=== PATIENT | male | born 1970 | race Caucasian/White ===

== ENCOUNTER → 2020-04-19 10:01 | Outpatient (CLI) | payer OTHER, SELFPAY ==
[2020-04-19 12:05] LABS: Absolute Lymphocyte Count 0.78 X10^3/uL (0.83-4.51); Basophil# 0.02 X10^3/uL; Basophil% 0.6 % (0-1); Eosinophil# 0.04 X10^3/uL; Eosinophils% 1.3 % (0-5); Hematocrit 39.4 % (40-54); Lymphocyte # 0.78 X10^3/ul (4.0); Mean Corpuscular Hgb 29.2 pg (27.0-32.0); Mean Corpuscular Volume 88.5 fL (80-94); Mean Platelet Vol. 10.7 fl (6.2-12.0); Monocyte# 0.27 X10^3/uL; Monocyte% 8.7 % (0-10); NRBC Flagged by Analyzer 0 % (0-5); Neutrophil % 64.1 % (47-70); Platelet Count 159 K/mm3 (150-450); RBC Distribution Width CV 12.6 % (11.6-14.6); RBC Distribution Width SD 41.1 fl (35.1-43.9); Red Blood Count 4.45 M/mm3 (4.6-6.2); White Blood Count 3.1 K/mm3 (4.4-11.0)
[2020-04-19 12:27] LABS: ALB/GLOB Ratio 1.3 RATIO (0.9-2.4); AST(SGOT) 25 U/L (15-37); Alanine Aminotransfer ALT/SGPT 49 U/L (16-61); Albumin, Serum 4.3 g/dL (3.2-5.0); Alkaline Phosphatase 78 U/L (45-117); Anion Gap 6 (5-15); BUN 26 mg/dL (7-18); BUN/Creat Ratio 21.5 RATIO (10-20); Calcium,Total 9.1 mg/dL (8.5-10.1); Chloride 104 mmol/L (98-107); Cholesterol 233 mg/dL (200); Creatinine, Serum 1.21 mg/dL (0.70-1.30); EST Glomerular Filtration Rate 68 mL/min (>60); Est Glom Filt Rate - Afr Amer 82 mL/min (>60); Globulin 3.2 g/dL (2.2-4.2); Glucose 202 mg/dL (74-106); High Density Lipoprotein 40 mg/dL; Potassium 3.9 mmol/L (3.5-5.1); Protein, Total 7.5 g/dL (6.4-8.2); Sodium Level 138 mmol/L (136-145); Triglycerides 100 mg/dL; Very Low Density Lipoprotein 20 mg/dL (5-40)
[2020-04-19 12:31] LABS: Hemoglobin A1c 8.3 % (3.8-5.6)
[2020-04-19 12:40] LABS: Microalbumin,Random Urine 80.4 mg/L (NO RANGE EST.); Microalbumin:Creatinine Ratio 170.7 mg/g CRE (<30 mg/g CRE)
== END ==
PROVIDERS: PCP Family Medicine; Visit Provider Family Medicine
DX: E11.9 Type 2 diabetes mellitus without complications (principal); I10 Essential (primary) hypertension
CPT/HCPCS: 36415; 80053; 80061; 82043; 82570; 83036; 85025

== ENCOUNTER → 2020-09-02 09:50 | Outpatient (CLI) | payer OTHER, SELFPAY ==
--- NOTE | 2020-09-02 09:57 | US_ITS ---
STUDY: RENAL ULTRASOUND - COMPLETE REASON FOR EXAM: Male, 50 years old. CHRONIC KIDNEY DISEASE STAGE 2 TECHNIQUE: Ultrasound evaluation of the kidneys was performed with real-time and static armenta-scale imaging. COMPARISON: None. FINDINGS: RIGHT KIDNEY: Normal location of the right kidney, which is normal in size. The right kidney measures 12.2 cm x 5.9 cm x 4.8 cm. There is a normal cortex of the right kidney. The renal cortex measures 2.3 cm. There is no right renal mass or cyst. 3 mm nonobstructive intrarenal calculus. There is no right hydronephrosis. DISTAL RIGHT URETER: There is non-visualization of the distal right ureter. There is no demonstrated right ureterovesical junction calculus. There is a visualized right ureteral jet. LEFT KIDNEY: Normal location of the left kidney, which is normal in size. The left kidney measures 12.8 cm x 5.7 cm x 4.3 cm. There is a normal cortex of the left kidney. The renal cortex measures 1.9 cm. There is no left renal mass or cyst. There are no left renal calculi. There is no left hydronephrosis. DISTAL LEFT URETER: There is non-visualization of the distal left ureter. There is no demonstrated left ureterovesical junction calculus. There is a visualized left ureteral jet. BLADDER: The distended urinary bladder has a volume of 91 ml. Mild degree of bladder wall thickening with trabeculation although the bladder is not completely distended. There is no demonstrated mass within the urinary bladder. There are no demonstrated bladder calculi. Incidental note is made of a splenomegaly and gallstones. US/Kidney and Bladder IMPRESSION: 3 mm nonobstructive right intrarenal calculus. Thickening of the urinary bladder wall and trabeculation although the bladder is not adequately distended at this time. Electronically Signed: Negro Bansal MD at 11:10 EDT , Service support ,
== END ==
PROVIDERS: PCP Family Medicine; Referring Provider Internal Medicine Nephrology; Visit Provider Internal Medicine Nephrology
DX: N18.2 Chronic kidney disease, stage 2 (mild) (principal)
CPT/HCPCS: 76770

== ENCOUNTER → 2021-01-31 11:01 | Outpatient (CLI) | payer OTHER, SELFPAY ==
[2021-01-31 12:50] LABS: Albumin, Serum 4.2 g/dL (3.2-5.0); BUN 19 mg/dL (7-18); BUN/Creat Ratio 20.1 RATIO (10-20); Calcium,Total 9.4 mg/dL (8.5-10.1); Chloride 107 mmol/L (98-107); Creatinine, Serum 0.95 mg/dL (0.70-1.30); EST Glomerular Filtration Rate 90 mL/min (>60); Est Glom Filt Rate - Afr Amer 109 mL/min (>60); Glucose 162 mg/dL (74-106); Phosphorus 2.7 mg/dL (2.5-4.9); Potassium 3.6 mmol/L (3.5-5.1); Sodium Level 141 mmol/L (136-145)
[2021-01-31 13:06] LABS: Microalbumin,Random Urine 46.7 mg/L (NO RANGE EST.); Microalbumin:Creatinine Ratio 144.6 mg/g CRE (<30 mg/g CRE)
== END ==
PROVIDERS: PCP Family Medicine; Visit Provider Internal Medicine Nephrology
DX: N18.2 Chronic kidney disease, stage 2 (mild) (principal); E11.22 Type 2 diabetes mellitus with diabetic chronic kidney disease
CPT/HCPCS: 36415; 80069; 82043; 82570

== ENCOUNTER 2021-05-18 10:45 | Outpatient (CLI) | payer OTHER, SELFPAY ==
[2021-05-18 12:35] LABS: Albumin, Serum 4.1 g/dL (3.2-5.0); BUN 10 mg/dL (7-18); BUN/Creat Ratio 10.4 RATIO (10-20); Chloride 107 mmol/L (98-107); Creatinine, Serum 0.96 mg/dL (0.70-1.30); EST Glomerular Filtration Rate 89 mL/min (>60); Est Glom Filt Rate - Afr Amer 107 mL/min (>60); Glucose 186 mg/dL (74-106); Phosphorus 2.7 mg/dL (2.5-4.9); Potassium 3.9 mmol/L (3.5-5.1); Sodium Level 139 mmol/L (136-145)
== END 2021-05-18 23:59 | disposition home or self-care (01) ==
LOC: LAB 10:50
PROVIDERS: PCP Family Medicine; Referring Provider Internal Medicine Nephrology; Visit Provider Internal Medicine Nephrology
DX: N18.2 Chronic kidney disease, stage 2 (mild) (principal)
CPT/HCPCS: 36415; 80069

== ENCOUNTER 2022-07-19 07:09 | Day surgery (SDC) | payer OTHER, SELFPAY ==
[2022-07-19] VITALS (7 sets, daily range): BP systolic 118–177; BP diastolic 70–91; PULSE 61–71; RESP 16; TEMP 36.4–36.6; O2SAT 98–100; BMI 30.6
[2022-07-19] MEDS: Lactated Ringers 1,000 ML 15 ML IV (07:32)
--- NOTE | 2022-07-19 07:42 | HP.PCM_ITS ---
[facility] - General General Date of Service: 07/19/22 Chief Complaint: Screening for colon ca HPI Narrative MANJU HAUSER, is a 52 M who presents for screening colonoscopy through our open access program. He has already completed his pre-procedure screening and this morning largely confirms the content therein. Specifically he denies any prior colonoscopy, any change to his bowel habits or any use of blood thinners. However, he presents today with his father who corrects the questionaire on the point of a positive family history. Patient's father states that he was diagnosed with prostate ca and leukemia but no colon ca. He does have a personal history of polyps. Mr. Hauser (patient) goes on to confirm that he completed a prep successfully for today's procedure. [facility] Medical History (Updated 07/16/22 @ 12:08 by Cheyenne Shay) Alcohol use Diabetes Dietary restriction Gout High cholesterol HTN (hypertension) Migraine headache Non-smoker Seasonal allergies Home Medications amlodipine 10 mg tablet 10 mg PO DAILY 05/16/22 [History Last Taken Unknown] hydrochlorothiazide 25 mg tablet 25 mg PO DAILY 05/16/22 [History Last Taken Unknown] lisinopril 40 mg tablet 40 mg PO DAILY 05/16/22 [History Last Taken Unknown] metformin 500 mg tablet 1,000 mg PO DAILY 05/16/22 [History Last Taken Unknown] multivitamin 1 tab PO DAILY 05/16/22 [History Last Taken Unknown] omega 7-xlb-acp-fish oil 60 mg-90 mg-500 mg capsule (Fish Oil) 2 cap PO DAILY 05/16/22 [History Last Taken Unknown] Allergy/AdvReac Type Severity Reaction Status Date / Time No Known Allergies Allergy Verified 07/19/22 07:29 Family History (Updated 05/16/22 @ 09:16 by Jocy Nguyễn) Mother Hypertension Father Colon cancer Leukemia CAD (coronary artery disease) Surgical History (Updated 05/16/22 @ 09:15 by Jocy Nguyễn) Hx of appendectomy Hx of LASIK Social History (Updated 05/16/22 @ 09:17 by Jocy Nguyễn) household members: spouse current occupational status: employed Smoking Status: Never smoker Past Medical/Surgical History Planned Operation Planned Operative Procedure/s: COLONOSCOPY-OA Previous Hospitalizations/Surgeries HX Hospitalizations: No Any Problems With Anesthesia: No You/Your Family Experience Fever (Hyperthermia) With Anes: No Cholinesterase deficiency: No Cardiovascular Hx Hypertension: No Respiratory Hx Sleep Apnea: No Hx Respiratory Tract Infection/Cold (presently): No Do You Snore Loudly (louder than talking or can be heard): No Do You Often Feel Tired/ Fatigued/ Sleepy Dring Daytime?: No Has Anyone Observed You Stop Breathing During Sleep?: No Result (for STOP score): Negative Smoking Status: Never smoker Neurological Does patient have nerve stimulator: No Miscellaneous Recent Exposure to Contagious Disease: No Allergies No Known Allergies Allergy (Verified 07/19/22 07:29) Discharge Is Pt Admitted From a Care Home, or a Usp: No After D/C, Where Do you Plan to Go: Return Home Vital Signs Vital Signs Vital Signs: 07/19/22 07:30 07/19/22 07:30 Temperature 97.8 F Temperature Source Temporal Pulse Rate 68 Respiratory Rate 16 Respiratory Pattern Normal Blood Pressure 177/91 H Blood Pressure Mean 119 Blood Pressure Source Monitor Blood Pressure Position Semi-Fowlers Blood Pressure Location Right Arm Pulse Ox 100 Oxygen Delivery Method Room Air Weight Weight: 231 lb 14.821 oz Body Mass Index (BMI) 30.6 Physical Exam Const alert, oriented x3 and no apparent distress General Appearance: cooperative Orientation / Consciousness: awake, oriented to person, oriented to place and oriented to time Resp normal respiratory effort GI GI Narrative: nondistended, soft, nontender Assessment & Plan Assessment/Plan (1) Encounter for screening for malignant neoplasm of colon: PLAN: Pt is 52 yo M who presents for screening colonoscopy through Open Access program. Overall he appears to be at average risk for colon ca- especially as his father corrects original report of a positive family history. He confirms that he completed his prescribed prep for today's procedure and that his output is now clear. He denies any questions related to our plans for this morning so we will proceed to the endoscopy suite for screening colonoscopy as scheduled. Surgery Risks - Colonoscopy Risks Include but are not Limited To: Risks include but are not limited to: Bleeding, perforation requiring further surgery, inability to complete colonoscopy requiring barium enema.
--- NOTE | 2022-07-19 08:15 | COLBX_PTH ---
PATIENT: MANJU HAUSER LOC: EN U#:[id number] AGE/SX: 52/M ROOM: RE07/19/[address]: Dr. Syed Guillermo MD : 1970 BED: DIS: 07/19/2022 SPEC #: [id number] RECD: 07/19/22 14:06 STATUS: CHRISTIANE BETINA #: [id number] JUAN: 07/19/22 08:[address]: Syed Guillermo DEPT: SURGICAL PATHOLOGY RECD BY: Suzanna Mora ENTERED: 07/20/22 08:51 SP TYPE: COLON BX OTHR DR: Dr. Farrah Geronimo MD Tissues: A - Sigmoid colon biopsy B - Sigmoid colon biopsy C - Sigmoid colon biopsy D - Sigmoid colon biopsy E - Rectum, NOS Procedures: Surgery Specimen Level IV HEADER OPERATION: Colonoscopy ? open access (MAC), polypectomy, biopsy PRE-OP DIAGNOSIS: Screening TISSUE SUBMITTED: A ? Sigmoid polyps (x2 polyps), B - Sigmoid polyp #2 (x1), C - Sigmoid colon mucosa biopsy, D - Sigmoid colon polyps biopsy #3 (x3 polyps), E ? Rectal polyps biopsy (x3 polyps) MICROSCOPIC DIAGNOSIS A. Sigmoid polyp, polypectomy: A fragment of inflammatory polyp. Fragments of colonic mucosa and colonic epithelium, no pathologic diagnosis. Fragments of fecal material. See comment. B. Sigmoid polyp #2, polypectomy: Tubular adenoma. C. Sigmoid colon, biopsy: Fragments of colonic mucosa, no pathologic diagnosis. D. Sigmoid colon polyps, biopsy: Fragments of hyperplastic polyp. A fragment of colonic mucosa with changes suggestive of submucosal leiomyoma. E. Rectal polyps, biopsy: Fragments of hyperplastic polyp. Focal changes consistent with inflammatory polyp. SJ:vianca 07/23/2022 COMMENT A. The specimen predominantly consists of fecal material. Case has been reviewed in consultation with Dr. Mendoza who concurs with the above diagnosis. IDC:AM MICROSCOPIC DESCRIPTION Slides are reviewed. GROSS DESCRIPTION A - Received in fixative is one container labeled with the patient's name and designated sigmoid polyps (2 polyps). The specimen consists of multiple irregular fragments of light burgos soft tissue mixed with fecal material that in aggregate measure 2.0 x 1.0 x 0.1 cm. The specimen is totally submitted in one cassette. B - Received in fixative is one container labeled with the patient's name and designated sigmoid polyp #2 (x1). The specimen consists of one irregular fragment of light burgos soft tissue that measures 0.3 x 0.3 x 0.1 cm. The specimen is totally submitted in one cassette. C - Received in fixative is one container labeled with the patient's name and designated sigmoid colon mucosa biopsy. The specimen consists of multiple irregular fragments of light burgos soft tissue that in aggregate measure 0.4 x 0.3 x 0.1 cm. The specimen is totally submitted in one cassette. D - Received in fixative is one container labeled with the patient's name and designated sigmoid polyp biopsy #4 (x2 polyps). The specimen consists of multiple irregular fragments of light brugos soft tissue that in aggregate measure 1.0 x 0.3 x 0.1 cm. The specimen is totally submitted in one cassette. E - Received in fixative is one container labeled with the patient's name and designated rectal polyp biopsy. The specimen consists of multiple irregular fragments of light burgos soft tissue that in aggregate measure 1.5 x 0.5 x 0.1 cm. The specimen is totally submitted in one cassette. / FRANCISCO JAVIER:vianca 07/20/2022 TC:1 CPT: 53056 x5
[2022-07-19 08:50] LABS: Bedside Glucose 134 mg/dL (74-106)
--- NOTE | 2022-07-19 10:02 | OP.CCLET_ITS ---
07/19/2022 Farrah Geronimo [place] [id number] [place] [address] Re : Colonoscopy procedure for Wei Mckenna Dear Dr. Geronimo This procedure was performed on June. My impressions and recommendations are as follows: Impressions : - Preparation of the colon was fair. - One 5 mm polyp in the proximal sigmoid colon, removed with a hot snare. Complete resection. Polyp tissue not retrieved. - Four 3 to 5 mm polyps in the sigmoid colon. Biopsied. - Three 3 to 4 mm polyps in the rectum. Biopsied. - Pseudopolyps in the sigmoid colon. Biopsied. Recommendations : - Discharge patient to home (via wheelchair). - Resume previous diet today. - Await pathology results. - Repeat colonoscopy date to be determined after pending pathology results are reviewed for surveillance based on pathology results. - Telephone my office for pathology results in 1 week. - Continue present medications. My findings are described in the full procedure note, which is enclosed. If I can be of further assistance, please feel free to contact me at Doctor phone number(s): , Work: . Sincerely, Syed Guillermo MD 07/19/2022 10:01:53 AM This report has been signed electronically.
--- NOTE | 2022-07-19 10:02 | OP.COLON_ITS ---
Patient Name: Wei Mckenna Procedure Date: 07/19/2022 8:29 AM Date of : 1970 Age: 52 Procedure: Colonoscopy Indications: Screening for colorectal malignant neoplasm Providers: Syed Guillermo MD Medicines: See the Anesthesia note for documentation of the administered medications Patient Profile: Last Colonoscopy: none. The patient's first colonoscopy is today. Complications: No immediate complications. Estimated blood loss: Minimal. Procedure: Pre-Anesthesia Assessment: - The heart rate, respiratory rate, oxygen saturations, blood pressure, adequacy of pulmonary ventilation, and response to care were monitored throughout the procedure. After I obtained informed consent, the scope was passed under direct vision. Throughout the procedure, the patient's blood pressure, pulse, and oxygen saturations were monitored continuously. The colonoscope was introduced through the anus and advanced to the cecum, identified by the appendiceal orifice, IC valve and transillumination. The colonoscopy was somewhat difficult due to poor bowel prep. Successful completion of the procedure was aided by lavage. The patient tolerated the procedure well. The quality of the bowel preparation was fair. Scope In: 8:45:02 AM Scope Withdrawal Time 0 hours 58 minutes 7 seconds Scope Out: 9:51:43 AM Total Procedure Duration Time 1 hour 6 minutes 41 seconds Findings: The perianal and digital rectal examinations were normal. Pertinent negatives include no palpable rectal lesions. A 5 mm polyp was found in the proximal sigmoid colon. The polyp was semi-pedunculated. The polyp was removed with a hot snare. Resection was complete, but the polyp tissue was not retrieved. Estimated blood loss: none. Four semi-sessile polyps were found in the sigmoid colon. The polyps were 3 to 5 mm in size. Biopsies were taken with a cold forceps for histology. Estimated blood loss was minimal. Three semi-sessile polyps were found in the rectum. The polyps were 3 to 4 mm in size. Biopsies were taken with a cold forceps for histology. Estimated blood loss was minimal. Localized pseudopolyps were found in the sigmoid colon. Biopsies were taken with a cold forceps for histology. Estimated blood loss was minimal. Impression: - Preparation of the colon was fair. - One 5 mm polyp in the proximal sigmoid colon, removed with a hot snare. Complete resection. Polyp tissue not retrieved. - Four 3 to 5 mm polyps in the sigmoid colon. Biopsied. - Three 3 to 4 mm polyps in the rectum. Biopsied. - Pseudopolyps in the sigmoid colon. Biopsied. Recommendation: - Discharge patient to home (via wheelchair). - Resume previous diet today. - Await pathology results. - Repeat colonoscopy date to be determined after pending pathology results are reviewed for surveillance based on pathology results. - Telephone my office for pathology results in 1 week. - Continue present medications. Procedure Code(s): --- Professional --- 63630, Colonoscopy, flexible; with removal of tumor(s), polyp(s), or other lesion(s) by snare technique 96979, 59, Colonoscopy, flexible; with biopsy, single or multiple Diagnosis Code(s): --- Professional --- Z12.11, Encounter for screening for malignant neoplasm of colon D12.5, Benign neoplasm of sigmoid colon K62.1, Rectal polyp K51.40, Inflammatory polyps of colon without complications CPT copyright 2017 [employer]. All rights reserved. The codes documented in this report are preliminary and upon brick chimney builder review may be revised to meet current compliance requirements. Syed Guillermo MD 07/19/2022 10:01:53 AM This report has been signed electronically. Number of Addenda: 0 Note Initiated On: 07/19/2022 8:29 AM
== END 2022-07-19 10:33 | disposition home or self-care (01) ==
LOC: EN 07:10 → AC 07:11
PROVIDERS: PCP Family Medicine; Referring Provider Surgery; Visit Provider Surgery
PROC: 0DJD8ZZ Inspection of Lower Intestinal Tract, Via Natural or Artificial Opening Endoscopic (ICD-10-PCS; CPT 45378; principal; 2022-07-19 08:10)
DX: Z12.11 Encounter for screening for malignant neoplasm of colon (principal); K51.40 Inflammatory polyps of colon without complications; E11.9 Type 2 diabetes mellitus without complications; K62.1 Rectal polyp; Z80.0 Family history of malignant neoplasm of digestive organs; I10 Essential (primary) hypertension; D12.5 Benign neoplasm of sigmoid colon
CPT/HCPCS: 45380; 45385; 82962; 88305; J7120; J2405

== ENCOUNTER → 2023-01-25 | Outpatient (CLI) | payer OTHER, SELFPAY ==
[2023-01-25 12:49] LABS: Absolute Lymphocyte Count 0.72 X10^3/uL (0.83-4.51); Absolute Neutrophil Count 2.9 X10^3/uL (2.0-7.7); Basophil# 0.03 X10^3/uL; Basophil% 0.8 % (0-1); Eosinophil# 0.05 X10^3/uL; Eosinophils% 1.3 % (0-5); Hematocrit 39.1 % (40-54); Hemoglobin 12.9 g/dL (13.0-16.5); Lymphocyte # 0.72 X10^3/ul (0.83-4.51); Mean Corpuscular Hgb 30.3 pg (27.0-32.0); Mean Corpuscular Volume 91.8 fL (80-94); Mean Platelet Vol. 11.1 fl (6.2-12.0); Monocyte# 0.29 X10^3/uL; Monocyte% 7.3 % (0-10); NRBC Flagged by Analyzer 0 % (0-5); Neutrophil # 2.88 X10^3/uL (2.7-7.7); Neutrophil % 72.1 % (47-70); Platelet Count 157 K/mm3 (150-450); RBC Distribution Width CV 12.3 % (11.6-14.6); RBC Distribution Width SD 40.7 fl (35.1-43.9); Red Blood Count 4.26 M/mm3 (4.6-6.2)
[2023-01-25 13:04] LABS: ALB/GLOB Ratio 1.3 RATIO (0.9-2.4); AST(SGOT) 20 U/L (15-37); Alanine Aminotransfer ALT/SGPT 36 U/L (16-61); Albumin, Serum 4.2 g/dL (3.2-5.0); Alkaline Phosphatase 74 U/L (45-117); Anion Gap 5 (5-15); BUN 13 mg/dL (7-18); BUN/Creat Ratio 12.1 RATIO (10-20); Chloride 105 mmol/L (98-107); Cholesterol 219 mg/dL (200); Creatinine, Serum 1.07 mg/dL (0.70-1.30); EST Glomerular Filtration Rate 78 mL/min (>60); Est Glom Filt Rate - Afr Amer 94 mL/min (>60); Globulin 3.3 g/dL (2.2-4.2); Glucose 203 mg/dL (74-106); High Density Lipoprotein 35 mg/dL; Protein, Total 7.5 g/dL (6.4-8.2); Sodium Level 139 mmol/L (136-145); Triglycerides 111 mg/dL; Very Low Density Lipoprotein 22 mg/dL (5-40)
== END | disposition home or self-care (01) ==
LOC: BFHLAB 10:39
PROVIDERS: PCP Family Medicine; Visit Provider Family Medicine
DX: E11.29 Type 2 diabetes mellitus with other diabetic kidney complication (principal); I10 Essential (primary) hypertension; R80.9 Proteinuria, unspecified
CPT/HCPCS: 36415; 80053; 80061; 85025

== ENCOUNTER 2023-07-05 09:15 | Day surgery (SDC) | payer OTHER, SELFPAY ==
[2023-07-05 09:42] VITALS: BP 157/101; PULSE 68; RESP 16; TEMP 36.3; O2SAT 97; BMI 30.9
[2023-07-05] MEDS: Lactated Ringers 1,000 ML 15 ML IV (09:46)
--- NOTE | 2023-07-05 10:08 | H&P.OPEN ---
HPI - General HPI Narrative MANJU HAUSER, is a 53 M who presents for surveillance colonoscopy. The patient had a colonoscopy a year ago with Dr. Guillermo and several polyps were removed. He was recommended to come back in 6 months but rescheduled twice. He does not know the reason why he needed a colonoscopy in 6 months. He denies any abdominal pain or blood in the stool. [facility] Medical History (Updated 07/05/23 @ 10:[address] Daron Ling MD) Alcohol use Diabetes Dietary restriction Family hx of colon cancer Gout High cholesterol HTN (hypertension) Hx of adenomatous colonic polyps Migraine headache Non-smoker Seasonal allergies Submucosal colonic leiomyoma Home Medications amlodipine 10 mg tablet 10 mg PO DAILY 05/16/22 [History Last Taken 07/04/23] hydrochlorothiazide 25 mg tablet 25 mg PO DAILY 05/16/22 [History Last Taken 07/04/23] lisinopril 40 mg tablet 40 mg PO DAILY 05/16/22 [History Last Taken 07/04/23] metformin 500 mg tablet 1,000 mg PO DAILY 05/16/22 [History Last Taken 07/04/23] multivitamin 1 tab PO DAILY 05/16/22 [History Last Taken 07/04/23] omega 9-mpi-khs-fish oil 60 mg-90 mg-500 mg capsule (Fish Oil) 2 cap PO DAILY 05/16/22 [History Last Taken 07/04/23] Allergy/AdvReac Type Severity Reaction Status Date / Time No Known Allergies Allergy Verified 07/05/23 09:40 Family History Mother Hypertension Father Colon cancer Leukemia CAD (coronary artery disease) Surgical History Hx of appendectomy Hx of colonoscopy Hx of LASIK Social History household members: spouse current occupational status: employed Smoking Status: Never smoker Past Medical/Surgical History Planned Operation Planned Operative Procedure/s: CSCOPE Previous Hospitalizations/Surgeries HX Hospitalizations: No Any Problems With Anesthesia: No You/Your Family Experience Fever (Hyperthermia) With Anes: No Cholinesterase deficiency: No Cardiovascular Hx Hypertension: Yes (CONTROLLED WITH MED) Respiratory Hx Sleep Apnea: No Hx Respiratory Tract Infection/Cold (presently): No Do You Snore Loudly (louder than talking or can be heard): No Do You Often Feel Tired/ Fatigued/ Sleepy Dring Daytime?: No Has Anyone Observed You Stop Breathing During Sleep?: No Result (for STOP score): Negative Smoking Status: Never smoker Neurological Does patient have nerve stimulator: No Reproduction : No Miscellaneous Recent Exposure to Contagious Disease: No Allergies No Known Allergies Allergy (Verified 07/05/23 09:40) Discharge Is Pt Admitted From a Detention, or a Senior Living: No After D/C, Where Do you Plan to Go: Return Home Vital Signs Vital Signs Vital Signs: 07/05/23 09:42 07/05/23 09:42 Temperature 97.3 F L Temperature Source Temporal Pulse Rate 68 Respiratory Rate 16 Respiratory Pattern Normal Blood Pressure 157/101 H Blood Pressure Mean 119 Blood Pressure Source Monitor Blood Pressure Position Semi-Fowlers Blood Pressure Location Left Arm Pulse Ox 97 Oxygen Delivery Method Room Air Weight Weight: 234 lb 12.677 oz Body Mass Index (BMI) 30.9 Physical Exam Const alert and oriented x3 HEENT normocephalic Eyes PERRL Resp normal respiratory effort and normal air movement Cardio regular rate and regular rhythm GI soft to palpation, non-tender and non-distended Extremity normal to inspection Assessment & Plan Assessment/Plan (1) History of colon polyps: PLAN: The patient has multiple polyps on his last colonoscopy. They all appear to be tubular adenomas or hyperplastic. Patient was recommended to repeat in 6 months I am unsure as to why he is I did not do his original scope in office because of bad prep or because anything was taken off piecemeal but he is 1 year out from that colonoscopy. He says the prep went well and denies any abdominal pain or blood in the stool. Plan for colonoscopy with any polyp removal. I explained endoscopy in detail to the patient. I explained the risks including but not limited to stroke or heart attack with anesthesia, perforation of the GI tract, bleeding, infection. I explained that any of these could necessitate further emergency surgery. The patient understands and all questions were answered sufficiently. The patient wishes to proceed with procedure. Daron Ling MD Pager: [facility] [address] [place] [address], [address] [place] [address] Office: Surgery Risks - Colonoscopy Risks Include but are not Limited To: Risks include but are not limited to: Bleeding, perforation requiring further surgery, inability to complete colonoscopy requiring barium enema.
[2023-07-05 10:10] LABS: Bedside Glucose 180 mg/dL (74-106)
[2023-07-05 10:30] VITALS: BP 157/101; BP 96/64; PULSE 71; RESP 16; TEMP 36.3; O2SAT 96
--- NOTE | 2023-07-05 10:31 | OP.CCLET_ITS ---
07/05/2023 Farrah Geronimo [facility] [address] [place] [address] Re : Colonoscopy procedure for Wei Clarisa Dear Dr. Geronimo This procedure was performed on Wednesday, July 05, 2023. My impressions and recommendations are as follows: Impressions : - The entire examined colon is normal on direct and retroflexion views. - No specimens collected. Recommendations : - Discharge patient to home. - Resume previous diet. - Continue present medications. - Repeat colonoscopy in 5 years for surveillance. My findings are described in the full procedure note, which is enclosed. If I can be of further assistance, please feel free to contact me at Doctor phone number(s): , Work: . Sincerely, Daron Ling MD 07/05/2023 10:31:12 AM This report has been signed electronically.
--- NOTE | 2023-07-05 10:31 | OP.COLON_ITS ---
Patient Name: Wei Mckenna Procedure Date: 07/05/2023 9:59 AM Date of : 1970 Age: 53 Procedure: Colonoscopy Indications: High risk colon cancer surveillance: Personal history of colonic polyps Providers: Daron Ling MD Medicines: Propofol per Anesthesia Patient Profile: This is a 53 year old male. Refer to note in patient chart for documentation of history and physical. Last Colonoscopy: 1 year ago. Complications: No immediate complications. Procedure: Pre-Anesthesia Assessment: - Prior to the procedure, a History and Physical was performed, and patient medications and allergies were reviewed. The patient's tolerance of previous anesthesia was also reviewed. The risks and benefits of the procedure and the sedation options and risks were discussed with the patient. All questions were answered, and informed consent was obtained. Prior Anticoagulants: The patient has taken no anticoagulant or antiplatelet agents. After reviewing the risks and benefits, the patient was deemed in satisfactory condition to undergo the procedure. After I obtained informed consent, the scope was passed under direct vision. Throughout the procedure, the patient's blood pressure, pulse, and oxygen saturations were monitored continuously. The pediatric colonoscope was introduced through the anus and advanced to the cecum, identified by appendiceal orifice and ileocecal valve. The colonoscopy was performed without difficulty. The patient tolerated the procedure well. The quality of the bowel preparation was good. The ileocecal valve, appendiceal orifice, and rectum were photographed. Scope In: 10:13:13 AM Scope Withdrawal Time 0 hours 6 minutes 5 seconds Scope Out: 10:25:09 AM Total Procedure Duration Time 0 hours 11 minutes 56 seconds Findings: The entire examined colon appeared normal on direct and retroflexion views. Impression: - The entire examined colon is normal on direct and retroflexion views. - No specimens collected. Recommendation: - Discharge patient to home. - Resume previous diet. - Continue present medications. - Repeat colonoscopy in 5 years for surveillance. Procedure Code(s): --- Professional --- 84183, Colonoscopy, flexible; diagnostic, including collection of specimen(s) by brushing or washing, when performed (separate procedure) Diagnosis Code(s): --- Professional --- Z86.010, Personal history of colonic polyps CPT copyright 2021 [employer]. All rights reserved. The codes documented in this report are preliminary and upon learning technologist review may be revised to meet current compliance requirements. Daron Ling MD 07/05/2023 10:31:12 AM This report has been signed electronically. Number of Addenda: 0 Note Initiated On: 07/05/2023 9:59 AM
[2023-07-05 10:35] VITALS: BP 123/77; BP 157/101; PULSE 69; PULSE 71; RESP 16; O2SAT 95
[2023-07-05 10:39] VITALS: BP 117/76; BP 157/101; PULSE 65; RESP 16; TEMP 36.6; O2SAT 94
[2023-07-05 10:48] VITALS: BP 157/101
== END 2023-07-05 10:55 | disposition home or self-care (01) ==
LOC: EN 09:17 → AC 09:23
PROVIDERS: PCP Family Medicine; Referring Provider Family Medicine; Visit Provider Surgery
PROC: 0DJD8ZZ Inspection of Lower Intestinal Tract, Via Natural or Artificial Opening Endoscopic (ICD-10-PCS; CPT 45378; principal; 2023-07-05 10:10)
DX: Z12.11 Encounter for screening for malignant neoplasm of colon (principal); E11.9 Type 2 diabetes mellitus without complications; Z79.84 Long term (current) use of oral hypoglycemic drugs; Z86.010 Personal history of colon polyps; E78.00 Pure hypercholesterolemia, unspecified; I10 Essential (primary) hypertension; Z80.0 Family history of malignant neoplasm of digestive organs
CPT/HCPCS: 45378; 82962; J7120; J2405

== ENCOUNTER → 2023-07-26 | Outpatient (CLI) | payer OTHER, SELFPAY ==
[2023-07-26 12:44] LABS: Microalbumin,Random Urine 99.2 mg/L (NO RANGE EST.); Microalbumin:Creatinine Ratio 91.9 mg/g CRE (<30 mg/g CRE)
[2023-07-26 12:58] LABS: ALB/GLOB Ratio 1.2 RATIO (0.9-2.4); AST(SGOT) 29 U/L (15-37); Alanine Aminotransfer ALT/SGPT 47 U/L (16-61); Albumin, Serum 4.3 g/dL (3.2-5.0); Alkaline Phosphatase 66 U/L (45-117); Anion Gap 5 (5-15); BUN 21 mg/dL (7-18); BUN/Creat Ratio 20.6 RATIO (10-20); Calcium,Total 9.3 mg/dL (8.5-10.1); Chloride 106 mmol/L (98-107); Creatinine, Serum 1.02 mg/dL (0.70-1.30); EST Glomerular Filtration Rate 82 mL/min (>60); Est Glom Filt Rate - Afr Amer 99 mL/min (>60); Globulin 3.5 g/dL (2.2-4.2); Glucose 225 mg/dL (74-106); Potassium 3.3 mmol/L (3.5-5.1); Protein, Total 7.8 g/dL (6.4-8.2); Sodium Level 139 mmol/L (136-145)
== END | disposition home or self-care (01) ==
PROVIDERS: PCP Family Medicine; Visit Provider Family Medicine
DX: E11.9 Type 2 diabetes mellitus without complications (principal); I10 Essential (primary) hypertension
CPT/HCPCS: 36415; 80053; 82043; 82570

== ENCOUNTER → 2024-01-31 | Outpatient (CLI) | payer OTHER, SELFPAY ==
[2024-01-31 13:01] LABS: PSA,Total - Annual Screen 1.57 ng/mL (0.00-4.00)
== END | disposition home or self-care (01) ==
LOC: BFHLAB 10:42
PROVIDERS: PCP Family Medicine; Referring Provider Family Medicine; Visit Provider Family Medicine
DX: Z12.5 Encounter for screening for malignant neoplasm of prostate (principal); Z80.42 Family history of malignant neoplasm of prostate
CPT/HCPCS: 36415; 84153; G0103